=== PATIENT | female | born 1935 | race Caucasian/White ===

== ENCOUNTER 2022-12-18 14:49 | Emergency (ER) | payer OTHER ==
[~2022-12-18] VITALS: Ht 162.6 cm; Wt 54.4 kg
[2022-12-18 14:58] VITALS: BP 151/81
--- NOTE | 2022-12-18 15:20 | NUR ---
[facility]IB[facility] C/O generalized weakness , LOSS OF APPETITE , NAUSEAX 3 DAYS. PuPIL AT FACILITY PINPOINT & BLOOD SUGAR 133. PT GOT NARCAN SPRAY . AT ER PT AO/3. NAKNEK. BILPUPILS 3 MM. BM LARGE AMOUNT BROWn. PMH: HTN, NAKNEK
[2022-12-18 15:27] LABS: BASOPHILS % (AUTO) 0.3 % (0.0-2.0); EOSINOPHILS % (AUTO) 0.1 % (0.0-4.0); HEMATOCRIT 35.2 % (36-48); HEMOGLOBIN 11.8 g/dL (12.0-16.0); LYMPHOCYTES # (AUTO) 1.9 K/uL (2.5-16.5); LYMPHOCYTES % (AUTO) 16.1 % (20.5-51.1); MEAN CORPUSCULAR HEMOGLOBIN 30 pg (27-31); MEAN CORPUSCULAR HGB CONC 34 g/dL (33-37); MEAN CORPUSCULAR VOLUME 90.6 fL (80-94); MONOCYTES # (AUTO) 0.7 K/uL (0.8-1.0); MONOCYTES % (AUTO) 5.8 % (1.7-9.3); NEUTROPHILS % (AUTO) 77.7 % (42.2-75.2); PLATELET COUNT (AUTO) 406 K/uL (140-450); RED BLOOD CELL COUNT(AUTO) 3.88 MIL/uL (4.20-5.40); RED CELL DISTRIBUTION WIDTH 13.5 % (11.6-13.7); WHITE BLOOD COUNT (AUTO) 11.6 K/uL (4.8-10.8)
[2022-12-18 15:56] LABS: PROTHROMBIN TIME 10.2 secs (10.8-13.4)
--- NOTE | 2022-12-18 16:00 | NUR ---
Pt changed, large BM soft x 1. All safety measures in place. On monitor. VSS
[2022-12-18] MEDS: NACL 0.9% 1,000 ML IV ONE (16:02)
[2022-12-18 16:09] LABS: ALBUMIN 3.7 g/dL (3.4-5.0); ASPARTATE AMINOTRANSFERASE 26 U/L (15-37); CHLORIDE 98 mmol/L (98-107); CREATININE 1.3 mg/dL (0.6-1.3); GLUCOSE 116 mg/dL (74-106); SODIUM SERUM 141 mmol/L (136-145); TOTAL BILIRUBIN 0.6 mg/dL (0.0-1.0); UREA NITROGEN, BLOOD 42 mg/dL (7-18)
[2022-12-18 17:24] LABS: APPEARANCE,URINE CLEAR (CLEAR); BILIRUBIN,URINE NEGATIVE (NEGATIVE); BLOOD, URINE SMALL (NEGATIVE); COLOR,URINE YELLOW (YELLOW); LEUKOCYTE ESTERASE ,URINE NEGATIVE (NEGATIVE); NITRITE, URINE NEGATIVE (NEGATIVE); UGLUCOSE NEGATIVE (NEGATIVE)
[2022-12-18 17:45] LABS: RBC,URINE 0-5 /HPF (0-5); WBC,URINE 0-5 /HPF (0-5)
[2022-12-18 17:46] LABS: OTHER CASTS, URINE None Seen /LPF (None Seen)
--- NOTE | 2022-12-18 18:38 | NUR ---
Assisted pt to reposition. Update given on care. Dr Carmona to review chart for dispo
--- NOTE | 2022-12-18 19:27 | NUR ---
Pt report given to CLARE Holcomb. Transfer of care at this time.
--- NOTE | 2022-12-18 19:39 | NUR ---
PT RESTING IN BED ON BEDSIDE [facility]NA[facility] AMBULATORY. RESP EVEN AND UNLABORED. PT IS A&OX3. SKIN WARM AND DRY . BED SIDE RAILS UP X2. PENDING DISPO
[2022-12-18 21:32] VITALS: BP 152/62
--- NOTE | 2022-12-18 21:32 | NUR ---
Patient discharged with v/s stable. Written and verbal after care instructions given and explained. Patient verbalized understanding. Ambulatory with steady gait. All questions addressed prior to discharge. Advised to follow up with PMD.
== END 2022-12-18 21:32 | disposition home or self-care (01) ==
LOC: MED 14:49
DX: T40.2X1A Poisoning by other opioids, accidental (unintentional), initial encounter (principal); R41.82 Altered mental status, unspecified; I10 Essential (primary) hypertension; Y92.89 Other specified places as the place of occurrence of the external cause
CPT/HCPCS: 36415; 70450; 71045; 80053; 81001; 82550; 82553; 83605; 83874; 83880; 85025; 85610; 85730; 87040; 87086; 93005; 96360; 99285; Q0092